=== PATIENT | male | born 1990 | race Two or more races ===

== ENCOUNTER 2019-01-20 21:02 | Emergency (ER) | payer BC ==
[2019-01-20] MEDS ORDERED: Albuterol/Ipratropium 3.0-0.5 MG/3 ML Neb Soln NEB ONE (22:20)
--- NOTE | 2019-01-20 22:23 | EDM.PDOC ---
ED HPI GENERAL MEDICAL PROBLEM - General Chief Complaint: Respiratory Problem Stated Complaint: PT HAS COUGH Time Seen by Provider: 01/20/19 22:14 - History of Present Illness INITIAL COMMENTS - FREE TEXT/NARRATIVE: HISTORY AND PHYSICAL: History of present illness: The patient is a 28-year-old male who presents with a one-month history of cough. The patient says that when it started a month ago it was very harsh and productive of green and yellow phlegm and now it is more dry and had he only productive of clear and occasionally white phlegm. He never had a fever with this sore throat runny nose or sinus congestion and no chest pain or shortness of breath. He has had a couple of episodes of posttussive emesis when he coughs very hard but he is not vomiting regularly and has no abdominal complaints. He has not tried much [id number] for these symptoms and says that he schedule an appointment in the clinic but it was canceled today due to a computer problem. He does not smoke but he works at the [employer] and he is exposed to a lot of inmates and potential illnesses so he is more concerned. He was told that he had asthma as a child but he has never had an asthma attack that he recalls nor does he use an inhaler and he is normally an active person without any shortness of breath. Review of systems: As per history of present illness and below otherwise all systems reviewed and negative. Past medical history: As per history of present illness and as reviewed below otherwise noncontributory. Surgical history: As per history of present illness and as reviewed below otherwise noncontributory. Social history: No reported history of drug or alcohol abuse. Family history: As per history of present illness and as reviewed below otherwise noncontributory. Physical exam: General: Well-developed well-nourished man who is nontoxic and vital signs are noted by me. He speaks clearly and easily in the ED without breathlessness voice HEENT: Atraumatic, normocephalic, negative for conjunctival pallor or scleral icterus, mucous membranes moist, throat clear, neck supple, nontender, trachea midline. Lungs: diminished breath sounds in all lung woodard without any wheezing stridor or work of breathing breath sounds equal bilaterally, chest nontender. Heart: S1S2, regular rate and rhythm no overt murmurs Abdomen: Soft, nondistended, nontender. NABS Pelvis: Deferred Genitourinary: Deferred. Rectal: Deferred. Extremities: Atraumatic, no edema. Neurovascular unremarkable. Neuro: Awake, alert, oriented. Cranial nerves II through XII unremarkable. Cerebellum unremarkable. Motor and sensory unremarkable throughout. Exam nonfocal. Diagnostics: Chest x-ray influenza swab Therapeutics: DuoNeb and spacer, with teaching After the DuoNeb the patient is moving air beautifully bilaterally which is dramatically different than his initial exam. He says he does feel somewhat better. I discussed with him that he will need a spacer and inhaler at home as well as a burst of steroids but will still need follow-up in the clinic. Impression: Bronchitis with bronchospasm Definitive disposition and diagnosis as appropriate pending reevaluation and review of above. no pain Pain Score (Numeric/FACES): 0 - Related Data Allergies Allergy/AdvReac Type Severity Reaction Status Date / Time Penicillins Allergy Airway Verified 01/20/19 22:08 Tightness Home Meds: Home Meds . [No Known Home Meds] 01/20/19 [History] Past Medical History - Past Health History Medical/Surgical History: Denies Medical/Surgical History HEENT History: Reports: None Cardiovascular History: Reports: None Respiratory History: Reports: None Gastrointestinal History: Reports: None Genitourinary History: Reports: None Musculoskeletal History: Reports: None Neurological History: Reports: None Endocrine/Metabolic History: Reports: None Hematologic History: Reports: None Oncologic (Cancer) History: Reports: None Dermatologic History: Reports: None - Infectious Disease History Infectious Disease History: Reports: Chicken Pox - Past Surgical History Head Surgeries/Procedures: Reports: None Social & Family History - Family History Family Medical History: Noncontributory - Tobacco Use Smoking Status *Q: Never Smoker - Recreational Drug Use Recreational Drug Use: No ED ROS GENERAL - Review of Systems Review Of Systems: ROS reveals no pertinent complaints other than HPI. ED EXAM, GENERAL - Physical Exam Exam: See Below (See dictation) Course - Vital Signs Last Recorded V/S: Last Vital Signs Temp 36.3 C 01/20/19 22:08 Pulse 72 01/20/19 22:08 Resp 18 01/20/19 22:08 BP 140/93 H 01/20/19 22:08 Pulse Ox 97 01/20/19 22:08 - Orders/Labs/Meds Orders: Active Orders 24 hr Category Date Time Status RT Aerosol Therapy [RC] ASDIRECTED Care 01/20/19 22:20 Active Meds: Medications Discontinued Medications Generic Name Dose Route Start Last Admin Trade Name Rain PRN Reason Stop Dose Admin Albuterol/Ipratropium 3 ml 01/20/19 22:20 01/20/19 22:30 Duoneb 3.0-0.5 Mg/3 Ml NEB 01/20/19 22:21 3 ml ONETIME ONE Administration Departure - Departure Time of Disposition: 23:03 Disposition: Home, Self-Care 01 Condition: Good Clinical Impression: Bronchitis with bronchospasm - Discharge Information Referrals: PCP,None [Primary Care Provider] - Forms: ED Department Discharge Additional Instructions: The following information is given to patients seen in the emergency department who are being discharged to home. This information is to outline your options for follow-up care. We provide all patients seen in our emergency department with a follow-up referral. The need for follow-up, as well as the timing and circumstances, are variable depending upon the specifics of your emergency department visit. If you don't have a primary care physician on staff, we will provide you with a referral. We always advise you to contact your personal physician following an emergency department visit to inform them of the circumstance of the visit and for follow-up with them and/or the need for any referrals to a consulting specialist. The emergency department will also refer you to a specialist when appropriate. This referral assures that you have the opportunity for followup care with a specialist. All of these measure are taken in an effort to provide you with optimal care, which includes your followup. Under all circumstances we always encourage you to contact your private physician who remains a resource for coordinating your care. When calling for followup care, please make the office aware that this follow-up is from your recent emergency room visit. If for any reason you are refused follow-up, please contact the [facility] emergency department at and ask to speak to the emergency department charge nurse. [facility] Primary care- [place] [address] Push hydration and call and schedule a follow-up appointment in the clinic to reevaluate today's care plan. Please use the Ventolin inhaler your been given with the spacer 1-2 puffs every 6 hours for the next 24 hours and then 1-2 puffs every 6 hours as needed for cough or shortness of breath. Please take the prednisone you have been prescribed as well. Return to ER as needed and as discussed - My Orders Last 24 Hours: My Active Orders 01/20/19 22:20 RT Aerosol Therapy [RC] ASDIRECTED - Assessment/Plan Last 24 Hours: My Active Orders 01/20/19 22:20 RT Aerosol Therapy [RC] ASDIRECTED
--- NOTE | 2019-01-20 22:54 | CR ---
Indication: Cough for 1 month. Technique: Chest 2 views Comparison: None Findings: Cardiovascular and mediastinum: Heart size and vasculature are normal in caliber and appearance. Lungs and pleural spaces: Lungs are clear. No sign of infiltrate or mass. No sign of pleural effusion. No pneumothorax. Bones and soft tissues: No significant findings. Impression: Unremarkable two view chest. Dictated by Jordan Lo MD @ Jan 20 2019 10:51PM Signed by Dr. Jordan Lo @ Jan 20 2019 10:52PM
== END 2019-01-20 23:19 | disposition home or self-care (01) ==
LOC: MW.ED 21:02
DX: J98.01 Acute bronchospasm (principal); J40 Bronchitis, not specified as acute or chronic; Z88.0 Allergy status to penicillin
CPT/HCPCS: 71046; 71046-26; 87804; 99283; 99284-25; J7620-GY